=== PATIENT | female | born 1970 | race Caucasian/White ===

== ENCOUNTER 2019-10-14 21:49 | Emergency (ER) | payer SELFPAY ==
--- NOTE | 2019-10-14 22:57 | NUR ---
PT [facility] OR TRIAGED.
== END 2019-10-14 22:57 | disposition left against medical advice (07) ==
LOC: MED 21:49
DX: L53.8 Other specified erythematous conditions (principal); Z53.21 Procedure and treatment not carried out due to patient leaving prior to being seen by health care provider